=== PATIENT | female | born 1970 | race Caucasian/White ===

== ENCOUNTER 2019-10-25 06:14 | Emergency (ER) | payer SELFPAY ==
[~2019-10-25] VITALS: Ht 152.4 cm; Wt 63.5 kg
[2019-10-25 06:20] VITALS: Ht 152.4 cm; Wt 63.5 kg
[2019-10-25 09:26] VITALS: BP 136/79
== END 2019-10-25 09:26 | disposition home or self-care (01) ==
LOC: ED 06:14
DX: J45.901 Unspecified asthma with (acute) exacerbation (principal); F17.210 Nicotine dependence, cigarettes, uncomplicated; R03.0 Elevated blood-pressure reading, without diagnosis of hypertension; Z71.6 Tobacco abuse counseling
CPT/HCPCS: 99406; J2930; J7613; J7644

== ENCOUNTER 2020-03-13 06:29 | Emergency (ER) | payer MEDICAID ==
[~2020-03-13] VITALS: Ht 157.5 cm; Wt 64.0 kg
[2020-03-13 06:36] VITALS: Ht 157.5 cm; Wt 64.0 kg
[2020-03-13 09:49] VITALS: BP 140/72
== END 2020-03-13 09:45 | disposition home or self-care (01) ==
LOC: ED 06:29
DX: J45.901 Unspecified asthma with (acute) exacerbation (principal); F17.210 Nicotine dependence, cigarettes, uncomplicated; Z71.6 Tobacco abuse counseling; Z20.828 Contact with and (suspected) exposure to other viral communicable diseases
CPT/HCPCS: 94150; 99406; J2930; U0003